=== PATIENT | female | born 1975 | race Caucasian/White ===

== ENCOUNTER 2022-04-26 15:38 | Emergency (ER) | payer BC, OTHER ==
[~2022-04-26] VITALS: Ht 160 cm; Wt 99.8 kg
[~2022-04-26 15:38] MED LIST: CIPR500T5 PO; FLUT1DIS3 IH; LACT1CAP57 PO; METR500T PO
[2022-04-26 16:17] VITALS: BP_SYST 128
--- NOTE | 2022-04-26 16:23 | NUR ---
Patient triaged and placed in waiting room. VSS and patient appears in no acute distress at this time. Accompanied by MOTHER, awaiting available bed, and MD notified of need for MSE.
--- NOTE | 2022-04-26 18:53 | NUR ---
PT BROUGHT TO BED 6, REPORT GIVEN TO MATTHEW VELEZ.
[2022-04-26] MEDS ORDERED: ONDANSETRON HCL 4 MG/2 ML VIAL IVP ONE (19:00)
[2022-04-26] MEDS ORDERED: MORPHINE 4 MG INJ. 4 MG/ML VIAL IVP ONE (19:00)
[2022-04-26] MEDS ORDERED: NACL 0.9% 1,000 ML IV ONE (19:00)
--- NOTE | 2022-04-26 19:00 | NUR ---
PT PRESENTED TO THE ER WITH GALLBLADDER PAIN. PT FLAREUP. PAIN LEVEL 9/10. PT IS SCHEDULE TO HAVE REMOVAL UNTIL JUN. PT VS ARE WITHIN NORMAL LIMITS. PT IS IN BED WITH BED LOWERED LOCKED AND RAILS LOCKD. PT IS PLACE ON MONITOR. WILL CONTINUE TO ASSESS
[2022-04-26 19:49] LABS: BASOPHILS # (AUTO) 0.2 K/uL (0.0-0.2); BASOPHILS % (AUTO) 2.7 % (0.0-2.0); EOSINOPHILS # (AUTO) 0.1 K/uL (0.0-0.4); EOSINOPHILS % (AUTO) 1.3 % (0.0-4.0); HEMATOCRIT 42.4 % (36-48); HEMOGLOBIN 14.3 g/dL (12.0-16.0); LYMPHOCYTES # (AUTO) 2.4 K/uL (1.0-5.5); LYMPHOCYTES % (AUTO) 32.7 % (20.5-51.5); MEAN CORPUSCULAR HEMOGLOBIN 30 pg (27-31); MEAN CORPUSCULAR HGB CONC 34 % (32-36); MEAN CORPUSCULAR VOLUME 88 fL (79.0-98.0); MONOCYTES # (AUTO) 0.4 K/uL (0.0-1.0); MONOCYTES % (AUTO) 6.1 % (1.7-9.3); NEUTROPHILS # (AUTO) 4.2 K/uL (1.8-7.7); NEUTROPHILS % (AUTO) 57.2 % (40.0-70.0); PLATELET COUNT (AUTO) 287 K/uL (130-430); RED BLOOD CELL COUNT(AUTO) 4.81 MIL/uL (4.2-6.2); RED CELL DISTRIBUTION WIDTH 12.9 % (9.0-15.0); WHITE BLOOD COUNT (AUTO) 7.3 K/uL (4.8-10.8)
[2022-04-26 19:57] LABS: CALCIUM 8.6 mg/dL (8.4-11.0); CREATININE 0.77 mg/dL (0.55-1.30); POTASSIUM 3.9 mmol/L (3.5-5.1)
[2022-04-26 20:03] LABS: ALBUMIN 3.6 g/dL (3.4-4.8); TOTAL BILIRUBIN 0.2 mg/dL (0.0-1.0)
--- NOTE | 2022-04-26 20:30 | NUR ---
Sodium chloride 1L started at 1930 hrs and ended at 2030 hrs
[2022-04-26] MEDS ORDERED: ANT30 PO (21:21)
[2022-04-26] MEDS ORDERED: HYDR-3917 PO (21:24)
[2022-04-26 22:02] VITALS: BP_SYST 135
--- NOTE | 2022-04-26 22:02 | NUR ---
Patient given written and verbal discharge instructions and verbalizes understanding. ER MD discussed with patient the results and treatment provided. Patient in stable condition. ID arm band removed. IV catheter removed intact and dressing applied, no active bleeding. Rx of abdominal pain given. Patient educated on pain management and to follow up with PMD. Opportunity for questions provided and answered. Medication side effect fact sheet provided.
== END 2022-04-26 22:04 | disposition home or self-care (01) ==
LOC: SED 15:38
DX: R10.9 Unspecified abdominal pain (principal); J45.909 Unspecified asthma, uncomplicated; Z91.040 Latex allergy status; Z91.018 Allergy to other foods; Z79.899 Other long term (current) drug therapy
CPT/HCPCS: 99284; 96374; 76705; 96361; 96375; 80053; 84703; 85025; 36415; J2405; J2270; J7030

== ENCOUNTER 2022-05-16 16:22 | Inpatient (IN) | payer BC ==
[~2022-05-16] VITALS: Ht 160 cm; Wt 108.9 kg
[2022-05-16 16:22] VITALS: BP_SYST 158
[~2022-05-16 16:22] MED LIST changes: +ANT30 PO; +HYDR-3917 PO
[2022-05-16] MEDS: KETOROLAC TROMETHAMINE 30 MG VIAL IVP ONE ×2 (17:02→17:10)
[2022-05-16 17:03] LABS: BASOPHILS % (AUTO) 0.4 % (0.0-2.0); EOSINOPHILS # (AUTO) 0.1 K/uL (0.0-0.4); EOSINOPHILS % (AUTO) 0.8 % (0.0-4.0); HEMATOCRIT 43.7 % (36-48); HEMOGLOBIN 14.8 g/dL (12.0-16.0); LYMPHOCYTES # (AUTO) 1.8 K/uL (1.0-5.5); LYMPHOCYTES % (AUTO) 20.2 % (20.5-51.5); MEAN CORPUSCULAR HEMOGLOBIN 30 pg (27-31); MEAN CORPUSCULAR HGB CONC 34 % (32-36); MEAN CORPUSCULAR VOLUME 87 fL (79.0-98.0); MONOCYTES # (AUTO) 0.7 K/uL (0.0-1.0); MONOCYTES % (AUTO) 7.7 % (1.7-9.3); NEUTROPHILS # (AUTO) 6.3 K/uL (1.8-7.7); NEUTROPHILS % (AUTO) 70.9 % (40.0-70.0); PLATELET COUNT (AUTO) 289 K/uL (130-430); RED BLOOD CELL COUNT(AUTO) 5.02 MIL/uL (4.2-6.2); WHITE BLOOD COUNT (AUTO) 8.9 K/uL (4.8-10.8)
[2022-05-16] MEDS: NACL 0.9% 1,000 ML IV ONE ×2 (17:03→17:09)
[2022-05-16 17:24] LABS: CALCIUM 9.1 mg/dL (8.4-11.0); CREATININE 0.75 mg/dL (0.55-1.30); POTASSIUM 3.7 mmol/L (3.5-5.1)
[2022-05-16 17:30] LABS: ALBUMIN 3.9 g/dL (3.4-4.8); TOTAL BILIRUBIN 0.4 mg/dL (0.0-1.0)
[2022-05-16 18:23] LABS: BILIRUBIN,URINE NEGATIVE (NEGATIVE); CLARITY/URINE CLEAR (CLEAR); COLOR,URINE YELLOW (YELLOW); GLUCOSE,URINE NEGATIVE (NEGATIVE); KETONES,URINE NEGATIVE (NEGATIVE); LEUKOCYTE ESTERASE ,URINE NEGATIVE (NEGATIVE); NITRITE, URINE NEGATIVE (NEGATIVE); PROTEIN URINE NEGATIVE (NEGATIVE); UROBILINOGEN,URINE 0.2 (0.2-1.0)
[2022-05-16 18:46] LABS: BLOOD, URINE TRACE (NEGATIVE)
[2022-05-16] MEDS: MORPHINE 2 MG/ML INJ. SYRINGE IVP PRN (21:28)
[2022-05-16] MEDS: D5NS 1,000 ML IV SCH (21:40)
[2022-05-16 22:47] VITALS: BP_SYST 145
[2022-05-17] VITALS (7 sets, daily range): BP systolic 130–139
[2022-05-17] MEDS: MORPHINE 2 MG/ML INJ. SYRINGE IVP PRN ×5 (01:46→22:38)
[2022-05-17] MEDS ORDERED: ZOLPIDEM TARTRATE 5 MG TABLET PO PRN (08:00)
[2022-05-17] MEDS ORDERED: ACETAMINOPHEN 325 MG TABLET PO PRN (08:00)
[2022-05-17] MEDS ORDERED: NALOXONE HCL 0.4 MG/ML AMP (NARCAN) IVP PRN ×2 (08:00)
[2022-05-17] MEDS ORDERED: POTASSIUM CHLORIDE 20 MEQ TAB.PRT.SR PO PRN (08:00)
[2022-05-17] MEDS ORDERED: MAGNESIUM SULFATE 50 ML IV PRN (08:00)
[2022-05-17] MEDS ORDERED: DOCUSATE SODIUM 100 MG CAPSULE PO PRN (08:00)
[2022-05-17] MEDS ORDERED: MORPHINE 2 MG/ML INJ. SYRINGE IVP PRN ×2 (08:00)
[2022-05-17] MEDS ORDERED: LORazepam 2 MG/ML VIAL IVP PRN (08:00)
[2022-05-17] MEDS ORDERED: IPRATROPIUM/ALBUTEROL SULFATE 3 ML AMPUL.NEB (DUONEB) INH PRN (08:00)
[2022-05-17] MEDS ORDERED: MUPIROCIN 2% TOPICAL OINTMENT 22 GM NS PRN (08:00)
[2022-05-17] MEDS ORDERED: LORazepam 1 MG TABLET PO PRN (08:15)
[2022-05-17] MEDS: D5NS 1,000 ML IV SCH ×2 (11:00→23:43)
[2022-05-17] MEDS ORDERED: DICYCLOMINE HCL 10 MG CAPSULE PO ONE (19:00)
[2022-05-17] MEDS: PANTOPRAZOLE SODIUM 40 MG TAB PO SCH (21:00)
[2022-05-18 08:00] VITALS: BP_SYST 132
[2022-05-18 08:28] LABS: BILIRUBIN,DIRECT 0.1 mg/dL (0.0-0.3); CREATININE 0.65 mg/dL (0.55-1.30); POTASSIUM 3.7 mmol/L (3.5-5.1); TOTAL BILIRUBIN 0.4 mg/dL (0.0-1.0)
[2022-05-18 09:20] LABS: CALCIUM 8.4 mg/dL (8.4-11.0)
[2022-05-18] MEDS: DICYCLOMINE HCL 10 MG CAPSULE PO SCH ×2 (09:43→20:28)
[2022-05-18] MEDS: PANTOPRAZOLE SODIUM 40 MG TAB PO SCH (09:43)
[2022-05-18 12:00] VITALS: BP_SYST 152
[2022-05-18 12:00] LABS: BASOPHILS % (AUTO) 0.6 % (0.0-2.0); EOSINOPHILS # (AUTO) 0.2 K/uL (0.0-0.4); EOSINOPHILS % (AUTO) 3.1 % (0.0-4.0); HEMATOCRIT 41.5 % (36-48); HEMOGLOBIN 13.6 g/dL (12.0-16.0); LYMPHOCYTES # (AUTO) 2.3 K/uL (1.0-5.5); LYMPHOCYTES % (AUTO) 42.5 % (20.5-51.5); MEAN CORPUSCULAR HEMOGLOBIN 29 pg (27-31); MEAN CORPUSCULAR HGB CONC 33 % (32-36); MEAN CORPUSCULAR VOLUME 89 fL (79.0-98.0); MONOCYTES # (AUTO) 0.5 K/uL (0.0-1.0); MONOCYTES % (AUTO) 9.7 % (1.7-9.3); NEUTROPHILS # (AUTO) 2.4 K/uL (1.8-7.7); NEUTROPHILS % (AUTO) 44.1 % (40.0-70.0); PLATELET COUNT (AUTO) 265 K/uL (130-430); RED BLOOD CELL COUNT(AUTO) 4.65 MIL/uL (4.2-6.2); WHITE BLOOD COUNT (AUTO) 5.3 K/uL (4.8-10.8)
[2022-05-18] MEDS: MORPHINE 2 MG/ML INJ. SYRINGE IVP PRN (14:23)
[2022-05-18] MEDS: D5NS 1,000 ML IV SCH ×2 (14:24→22:18)
[2022-05-18 19:00] VITALS: BP_SYST 124
[2022-05-18 20:00] VITALS: BP_SYST 124
[2022-05-19 00:38] VITALS: BP_SYST 107
[2022-05-19 04:00] VITALS: BP_SYST 125
[2022-05-19 08:00] VITALS: BP_SYST 127
[2022-05-19 08:11] LABS: CALCIUM 8.6 mg/dL (8.4-11.0); CREATININE 0.8 mg/dL (0.55-1.30); POTASSIUM 3.6 mmol/L (3.5-5.1)
[2022-05-19] MEDS: PANTOPRAZOLE SODIUM 40 MG TAB PO SCH (10:42)
[2022-05-19] MEDS: D5NS 1,000 ML IV SCH (10:43)
[2022-05-19] MEDS: DICYCLOMINE HCL 10 MG CAPSULE PO SCH (10:43)
[2022-05-19] MEDS ORDERED: HYDR-3917 PO ×2 (11:16→14:11)
[2022-05-19 12:00] VITALS: BP_SYST 120
[2022-05-19 13:38] VITALS: BP_SYST 127
[2022-05-19 14:31] LABS: BASOPHILS # (AUTO) 0.1 K/uL (0.0-0.2); BASOPHILS % (AUTO) 1.1 % (0.0-2.0); EOSINOPHILS # (AUTO) 0.2 K/uL (0.0-0.4); EOSINOPHILS % (AUTO) 3.5 % (0.0-4.0); HEMATOCRIT 39.6 % (36-48); LYMPHOCYTES # (AUTO) 2.5 K/uL (1.0-5.5); MEAN CORPUSCULAR HEMOGLOBIN 29 pg (27-31); MEAN CORPUSCULAR HGB CONC 33 % (32-36); MEAN CORPUSCULAR VOLUME 89 fL (79.0-98.0); MONOCYTES # (AUTO) 0.4 K/uL (0.0-1.0); MONOCYTES % (AUTO) 7.8 % (1.7-9.3); NEUTROPHILS # (AUTO) 1.9 K/uL (1.8-7.7); NEUTROPHILS % (AUTO) 38.6 % (40.0-70.0); PLATELET COUNT (AUTO) 249 K/uL (130-430); RED BLOOD CELL COUNT(AUTO) 4.45 MIL/uL (4.2-6.2); RED CELL DISTRIBUTION WIDTH 12.9 % (9.0-15.0)
== END 2022-05-19 18:01 | disposition home or self-care (01) | DRG 445 ==
LOC: SED 16:22 → SMU 20:13
PROVIDERS: ADMIT General Practice; ATTEND General Practice
DX: K80.20 Calculus of gallbladder without cholecystitis without obstruction (principal); Z68.41 Body mass index [BMI] 40.0-44.9, adult; J45.909 Unspecified asthma, uncomplicated; K57.90 Diverticulosis of intestine, part unspecified, without perforation or abscess without bleeding; F19.10 Other psychoactive substance abuse, uncomplicated; Z20.822 Contact with and (suspected) exposure to COVID-19; E66.9 Obesity, unspecified; Z91.040 Latex allergy status; Z91.018 Allergy to other foods; Z79.899 Other long term (current) drug therapy; Z80.42 Family history of malignant neoplasm of prostate
CPT/HCPCS: 36415; 76376; 78226; 80048; 80053; 80076; 81003; 83036; 83690; 83735; 85025; 93005; 96361; 96374; 99285; A9537; J1885; J2270